=== PATIENT | female | born 1970 | race Caucasian/White ===

== ENCOUNTER 2018-03-02 10:36 | Emergency (ER) | payer OTHER ==
[~2018-03-02] VITALS: Ht 165.1 cm; Wt 62.1 kg
--- NOTE | 2018-03-02 11:48 | ED GI/GU/ABDOMINAL COMPLAINT ---
History of Present Illness General Chief Complaint: Abdominal Pain/Flank Pain Stated Complaint: ABD PAIN Source: patient Exam Limitations: no limitations Vital Signs & Intake/Output Vital Signs & Intake/Output Vital Signs Date Time Temp Pulse Resp B/P B/P Pulse O2 O2 Flow FiO2 Mean Ox Delivery Rate 03/02 1629 98.2 79 18 108/64 100 Room Air 03/02 1441 98.5 75 18 106/62 97 Room Air 03/02 1041 97.9 76 18 119/79 98 Room Air Allergies Coded Allergies: No Known Allergies (04/13/17) Reconcile Medications Ondansetron HCl (Zofran) 4 MG TABLET 1 TAB PO Q6-8P PRN NAUSEA Oxycodone HCl/Acetaminophen (Percocet 5-325 MG Tablet) 5 MG-325 MG TABLET 1 TAB PO BID PRN PAIN Triage Note: 48 YO FEMALE TO TRIAGE FOR EVAL OF 1 WEEK HX OF ABD PAIN, STATES PAIN IS GENERALIZED SHE CANNOT PINPOINT 1 SPOT. STATES +VOMTIING. DENIES DIARRHEA. DENIES URINARY S/S. Triage Nurses Notes Reviewed? yes ? N Is pt currently ? No Duration: constant Timing: recent history Quality/Severity: sharpness, severe Severity Numbers: 7 Location: generalized abdomen Radiation: no radiation HPI: Patient is a 48-year-old female with past medical history of hyperlipidemia who presents emergency room with concerns of a one-week history of waxing and waning generalized abdominal pain patient has associated symptoms of malodorous yellow vaginal discharge and dyspareunia Patient has monogamous relationship and sexually active Denies any fever chills back pain chest pain cough dysuria hematuria or change in frequency of urination Patient was evaluated earlier by her MANAGER NIGHT and had a negative urine performed a vaginal exam with unremarkable findings per the patient. Past History Travel History Traveled to [place] past 21 day No Medical History Any Pertinent Medical History? see below for history Neurological: NONE EENT: NONE Cardiovascular: hyperlipidemia Respiratory: NONE Gastrointestinal: NONE Hepatic: NONE Renal: NONE Musculoskeletal: NONE Psychiatric: NONE Endocrine: NONE Blood Disorders: NONE Cancer(s): NONE Other Medical Hx: Hyperlipidemia Surgical History Surgical History: ovarian cystectomy Psychosocial History What is your primary language Moldovan Tobacco Use: Never used Family History Hx Contributory? No Review of Systems Review of Systems Constitutional: Reports: no symptoms. EENTM: Reports: no symptoms. Respiratory: Reports: no symptoms. Cardiovascular: Reports: no symptoms. GI: Reports: see HPI, abdominal pain. Genitourinary: Reports: see HPI. Musculoskeletal: Reports: no symptoms. Skin: Reports: no symptoms. Neurological/Psychological: Reports: no symptoms. Hematologic/Endocrine: Reports: no symptoms. Immunologic/Allergic: Reports: no symptoms. All Other Systems: Reviewed and Negative Physical Exam Physical Exam General Appearance: no apparent distress, alert, awake, comfortable Head: atraumatic Eyes: Bilateral: normal appearance. Ears, Nose, Throat, Mouth: hearing grossly normal, moist mucous membrane Neck: normal inspection Respiratory: normal breath sounds, no respiratory distress Cardiovascular: regular rate/rhythm Gastrointestinal: normal bowel sounds, tenderness Pelvic: tender w/ cervical motion Extremities: normal range of motion Neurologic/Psych: no motor/sensory deficits, awake Skin: intact, normal color, warm/dry Core Measures ACS in differential dx? No Sepsis Present: No Sepsis Focused Exam Completed? No Progress Differential Diagnosis: AAA, AMI, appendicitis, biliary colic, bowel obstruction , colon cancer, cholecystitis, diverticulitis, ectopic , endometritis, esophageal varices, gastritis, hepatitis, hernia, hemorrhoids, ischemic bowel, inflamm bowel dis, intrauterine , kidney stone, Yenny-Alejo tear, ovarian cyst, ovarian torsion, pancreatitis, PID/cervicitis, peptic ulcer, PUD/ GERD, perforated viscous, SBO, threatened AB, UTI/pyelo Plan of Care: Orders Procedure Date/time Status TRICHOMONAS 03/02 1215 Complete POTASSIUM HYDROXIDE (MARISSA) 03/02 1215 Complete GENITAL CULTURE 03/02 1215 Active CHLAMYDIA-GC DNA PROBE 03/02 1215 Active URINE 03/02 1214 Complete URINALYSIS 03/02 1214 Complete LIPASE 03/02 1214 Complete COMPREHENSIVE METABOLIC PANEL 03/02 1214 Complete CBC WITHOUT DIFFERENTIAL 03/02 1214 Complete Current Medications Sig/Sara Start time Last Medication Dose Stop Time Status Admin Cefoxitin Sodium 2,000 MG ONCE ONE 03/02 1530 CAN (Mefoxin 2gm) 03/02 1531 Probenecid 1,000 MG ONE ONE 03/02 1530 CAN (Benemid) 03/02 1531 Laboratory Tests 03/02/18 1236: Urine Color YEL, Urine Clarity HAZY H, Urine pH 6.0, Ur Specific [place] >= 1.030, Urine Protein NEG, Urine Ketones 15 H, Urine Nitrite NEG, Urine Bilirubin NEG, Urine Urobilinogen 0.2, Ur Leukocyte Esterase NEG, Ur Microscopic SEDIMENT EXAMINED, Urine WBC RARE, Ur Epithelial Cells MOD H, Urine Bacteria RARE H, Hyaline Casts RARE H, Urine Mucus MANY H, Urine Hemoglobin NEG, Urine Glucose NEG, Urine Test NEGATIVE 03/02/18 1224: Anion Gap 8, Estimated GFR > 60, BUN/Creatinine Ratio 28.3 H, Glucose 83, Calcium 9.0, Total Bilirubin 0.9, AST 23, ALT 28, Alkaline Phosphatase 41, Total Protein 6.6, Albumin 3.9, Globulin 2.7, Albumin/Globulin Ratio 1.4, Lipase 51, CBC w Diff NO MAN DIFF REQ, RBC 4.62, MCV 86.4, MCH 30.1, MCHC 34.8, RDW 13.6, MPV 8.7, Gran % 66.7, Lymphocytes % 23.3, Monocytes % 8.6, Eosinophils % 0.9, Basophils % 0.5, Absolute Granulocytes 4.1, Absolute Lymphocytes 1.4, Absolute Monocytes 0.5, Absolute Eosinophils 0.1, Absolute Basophils 0 Microbiology 03/02 1310 URINE ROUT: GC DNA Probe - RECD 03/02 1310 URINE ROUT: Chlamydia DNA Probe (FILIBERTO) - RECD 03/02 1310 GENITAL: MARISSA Preparation - COMP 03/02 1310 GENITAL: Trichomonas Preparation - COMP 03/02 1310 GENITAL: Genital Culture - RECD Patient on initial examination has significantly tender abdomen on exam and has cervical motion tenderness and malodorous vaginal region and white discharge from cervix. Culture obtained I discussed patient with her MANAGER NIGHT Claribel Tillman who she did not believe that patient had any chance of having pelvic inflammatory disease ultrasound CT scan was unremarkable as well as blood work no signs of sepsis or leukocytosis or fever. She advised not to provide patient with antibiotic prophylaxis at this time for PID. Patient was strongly advised to follow-up with her MANAGER NIGHT and director of research. Transvaginal ultrasound was unremarkable discussed results with patient who is aware she was strongly advised to follow-up with MANAGER NIGHT tomorrow and GI if no improvement or to return to emergency room if symptoms worsen and she will comply. Patient was able tolerate p.o. upon discharge. Diagnostic Imaging: Viewed by Me: Radiology Read, CT Scan. Radiology Impression: no acute abnormality Initial ED EKG: none Comments: PATIENT: BEBETO SMITH PRESENT AGE: 48 PATIENT ACCOUNT NO: [id number] : 71 LOCATION: ER ORDERING PHYSICIAN: Alexy MADRID SERVICE DATE: 03/02/18 EXAM TYPE: US - US-TRANSVAGINAL US TRANSVAGINAL CLINICAL INFORMATION: Abdominal pain, sexually active with vaginal discharge and painful cervix. COMPARISON: Abdominal CT performed earlier the same day. TECHNIQUE: Real-time transabdominal and then transvaginal pelvic ultrasound is performed using grayscale, color Doppler, and spectral Doppler technique. FINDINGS: The uterus is anteroverted and measures up to 8.2 x 4.4 x 5.3 cm. Cervical length is 2.9 cm. Endometrial stripe thickness is 1.5 cm. There are no uterine masses. The right ovary measures 1.9 x 0.9 x 2.0 cm with a volume of 1.8 mL. No adnexal lesion. Normal arterial and venous waveforms. The left ovary measures 2.3 x 1.7 x 2.4 cm with a volume of 4.9 mL. No adnexal lesion. Normal arterial and venous waveforms. Trace amount of free fluid within the pelvic cul-de-sac that is nonspecific. IMPRESSION: Trace amount of free fluid within the pelvic cul-de-sac that is nonspecific. Otherwise unremarkable pelvic ultrasound. DICTATED BY: Cortez Rincon MD DATE/TIME DICTATED:03/02/181629 ACCOUNTING ASSISTANT:AMIRAH DATE/TIME TRANSCRIBED:03/02/181629 PATIENT: BEBETO SMITH PRESENT AGE: 48 PATIENT ACCOUNT NO: [id number] : 71 LOCATION: [facility] ORDERING PHYSICIAN: Alexy MADRID SERVICE DATE: 03/02/181228 EXAM TYPE: CAT - CT ABD & PELVIS W IV CONTRAST EXAMINATION: CT ABDOMEN AND PELVIS WITH CONTRAST CLINICAL INFORMATION: Abdominal pain. COMPARISON: Abdominal ultrasound dated 11/17/2008. Pelvic ultrasound dated 10/03/2009. TECHNIQUE: Multidetector CT volumetric acquisition of the abdomen and pelvis was performed after the administration of 95 and mL of intravenous Optiray 320. The data set was reformatted in the sagittal and coronal planes and reviewed on an independent workstation. DLP: 263.3 to mGy-cm. FINDINGS: LOWER CHEST: Mild dependent atelectatic changes are seen in the left lower lobe. LIVER, GALLBLADDER, BILIARY TREE: Liver borderline normal size (18 cm long) and attenuation. No focal cystic or solid mass or intra-or extrahepatic ductal dilatation. Hepatic and portal veins patent. Gallbladder partially distended and within normal limits. PANCREAS: Normal. No ductal dilatation, mass, or surrounding stranding. SPLEEN: Normal size and appearance. Splenic vein patent. ADRENAL GLANDS AND KIDNEYS: Adrenal glands normal. Kidneys bilaterally symmetric in size and function. No focal mass, hydronephrosis, nephrolithiasis or perinephric stranding. URETERS AND BLADDER: Ureters decompressed and unremarkable. Bladder essentially completely decompressed and not adequately assessed. PELVIC ORGANS: Uterus is anteverted and unremarkable. Left ovary shows benign appearing follicular cysts and is otherwise unremarkable. Right ovary is obscured by volume averaging with adjacent bowel loops. No suspicious right adnexal mass seen. Small amount of free fluid noted in the right posterior cul-de-sac, likely physiologic. GASTROINTESTINAL TRACT: . Moderate sigmoid colonic diverticulosis. No evidence of acute diverticulitis. Small and large bowel loops decompressed. Appendix in right lower quadrant normal. LYMPHOVASCULAR STRUCTURES: Abdominal aorta normal in caliber. No periaortic collections. No abdominal or pelvic adenopathy or free fluid collection. BONES: Within normal limits. IMPRESSION: 1. No acute intra-abdominal or pelvic process seen. 2. Moderate sigmoid colonic diverticulosis. No acute diverticulitis. 3. Small amount of free fluid in the posterior right cul-de-sac, likely physiologic. As noted above, the right ovary is not specifically identified due to volume averaging with adjacent bowel loops. No suspicious adnexal mass is seen. Left ovary is unremarkable. 4. Mild dependent atelectasis in left lower lobe. DICTATED BY: Eunice Granados MD. DATE/TIME DICTATED:03/02/181424 ACCOUNTING ASSISTANT:AMIRAH Departure Departure Disposition: HOME OR SELF CARE Condition: Stable Clinical Impression Primary Impression: Abdominal pain Referrals: Dre Valentino MD (PCP/Family) Vin Karimi MD Additional Instructions: As discussed begin the prescription Zofran for nausea and Percocet for pain, prescription waiting at [facility] follow-up with your MANAGER NIGHT tomorrow If no better on follow-up with director of research Dr. Karimi. If symptoms worsen or if you develop new concerning symptom return to emergency room Departure Forms: Customer Survey General Discharge Information Prescriptions: Current Visit Scripts Oxycodone HCl/Acetaminophen (Percocet 5-325 MG Tablet) 1 TAB PO BID PRN PAIN #10 TAB Ondansetron HCl (Zofran) 1 TAB PO Q6-8P PRN NAUSEA #8 TAB
[2018-03-02 12:42] LABS: ABSOLUTE BASOPHIL COUNT 0 /CUMM (0.0-0.2); ABSOLUTE EOSINOPHIL COUNT 0.1 /CUMM (0.0-0.7); ABSOLUTE GRANULOCYTE CT 4.1 /CUMM (1.4-6.5); ABSOLUTE LYMPH COUNT 1.4 /CUMM (1.2-3.4); ABSOLUTE MONOCYTE COUNT 0.5 /CUMM (0.10-0.60); BASOPHIL % 0.5 % (0.0-2.0); EOSINOPHIL % 0.9 % (0-5); GRANULOCYTE % 66.7 % (42.2-75.2); HEMATOCRIT 39.9 % (37-47); MEAN CORPUSCULAR HGB 30.1 PG (27.0-31.0); MEAN CORPUSCULAR HGB CONC 34.8 G/DL (33.0-37.0); MEAN CORPUSCULAR VOLUME 86.4 FL (81.0-99.0); MEAN PLATELET VOLUME 8.7 FL (7.4-10.4); PLATELET COUNT 192 /CUMM (130-400); RBC DISTRIBUTION WIDTH 13.6 % (11.5-14.5); RED BLOOD CELL CT 4.62 /CUMM (4.20-5.40); WHITE BLOOD CELL COUNT 6.1 /CUMM (4.8-10.8)
--- NOTE | 2018-03-02 14:44 | CT SCAN REPORT ---
EXAMINATION: CT ABDOMEN AND PELVIS WITH CONTRAST CLINICAL INFORMATION: Abdominal pain. COMPARISON: Abdominal ultrasound dated 11/17/2008. Pelvic ultrasound dated 10/03/2009. TECHNIQUE: Multidetector CT volumetric acquisition of the abdomen and pelvis was performed after the administration of 95 and mL of intravenous Optiray 320. The data set was reformatted in the sagittal and coronal planes and reviewed on an independent workstation. DLP: 263.3 to mGy-cm. FINDINGS: LOWER CHEST: Mild dependent atelectatic changes are seen in the left lower lobe. LIVER, GALLBLADDER, BILIARY TREE: Liver borderline normal size (18 cm long) and attenuation. No focal cystic or solid mass or intra-or extrahepatic ductal dilatation. Hepatic and portal veins patent. Gallbladder partially distended and within normal limits. PANCREAS: Normal. No ductal dilatation, mass, or surrounding stranding. SPLEEN: Normal size and appearance. Splenic vein patent. ADRENAL GLANDS AND KIDNEYS: Adrenal glands normal. Kidneys bilaterally symmetric in size and function. No focal mass, hydronephrosis, nephrolithiasis or perinephric stranding. URETERS AND BLADDER: Ureters decompressed and unremarkable. Bladder essentially completely decompressed and not adequately assessed. PELVIC ORGANS: Uterus is anteverted and unremarkable. Left ovary shows benign appearing follicular cysts and is otherwise unremarkable. Right ovary is obscured by volume averaging with adjacent bowel loops. No suspicious right adnexal mass seen. Small amount of free fluid noted in the right posterior cul-de-sac, likely physiologic. GASTROINTESTINAL TRACT: . Moderate sigmoid colonic diverticulosis. No evidence of acute diverticulitis. Small and large bowel loops decompressed. Appendix in right lower quadrant normal. LYMPHOVASCULAR STRUCTURES: Abdominal aorta normal in caliber. No periaortic collections. No abdominal or pelvic adenopathy or free fluid collection. BONES: Within normal limits. IMPRESSION: 1. No acute intra-abdominal or pelvic process seen. 2. Moderate sigmoid colonic diverticulosis. No acute diverticulitis. 3. Small amount of free fluid in the posterior right cul-de-sac, likely physiologic. As noted above, the right ovary is not specifically identified due to volume averaging with adjacent bowel loops. No suspicious adnexal mass is seen. Left ovary is unremarkable. 4. Mild dependent atelectasis in left lower lobe.
--- NOTE | 2018-03-02 16:36 | ULTRASOUND REPORT ---
US TRANSVAGINAL CLINICAL INFORMATION: Abdominal pain, sexually active with vaginal discharge and painful cervix. COMPARISON: Abdominal CT performed earlier the same day. TECHNIQUE: Real-time transabdominal and then transvaginal pelvic ultrasound is performed using grayscale, color Doppler, and spectral Doppler technique. FINDINGS: The uterus is anteroverted and measures up to 8.2 x 4.4 x 5.3 cm. Cervical length is 2.9 cm. Endometrial stripe thickness is 1.5 cm. There are no uterine masses. The right ovary measures 1.9 x 0.9 x 2.0 cm with a volume of 1.8 mL. No adnexal lesion. Normal arterial and venous waveforms. The left ovary measures 2.3 x 1.7 x 2.4 cm with a volume of 4.9 mL. No adnexal lesion. Normal arterial and venous waveforms. Trace amount of free fluid within the pelvic cul-de-sac that is nonspecific. IMPRESSION: Trace amount of free fluid within the pelvic cul-de-sac that is nonspecific. Otherwise unremarkable pelvic ultrasound.
[2018-03-02] MEDS ORDERED: ZOFRAN4 M2 PO (17:24)
[2018-03-02] MEDS ORDERED: PERCOCET 5-3251 EACH PO (17:24)
[2018-03-02 17:38] VITALS: BP 114/77
== END 2018-03-02 17:39 ==
LOC: ERH 10:36
PROVIDERS: Physician Assistant
DX: R10.84 Generalized abdominal pain (principal)
CPT/HCPCS: 87070; 74177; 81001; 81025; 87147; 87491; 87591; 96374; 96375; J0694; J1885